=== PATIENT | female | born 1955 | race Two or more races ===

== ENCOUNTER 2020-07-10 12:00 | Inpatient (IN) | payer OTHER ==
[~2020-07-10] VITALS: Ht 162.6 cm; Wt 84.4 kg
[2020-07-10] MEDS ORDERED: METO PO (18:03)
[2020-07-10] MEDS ORDERED: LOSARTAN-HCTZ1 EAC1 PO (18:03)
[2020-07-10] MEDS ORDERED: LIPITO PO (18:04)
[2020-07-10] MEDS ORDERED: METFORMIN PO (18:05)
[2020-07-12] MEDS ORDERED: ATORVASTATIN CA10 MG (09:21)
[2020-07-12] MEDS ORDERED: METOPROLOL SUC100 MG (09:22)
[2020-07-12] MEDS ORDERED: METFORMIN HCL500 M4 (09:22)
== END 2020-07-15 12:05 | disposition home or self-care (01) | DRG 331 ==
LOC: O/R 07-12 05:58 → SURG 07-12 05:58 → SURH 07-12 05:58 → SURG 07-12 14:35
PROVIDERS: ADMIT Surgery; ATTEND Surgery
PROC: 07BC4ZX Excision of Pelvis Lymphatic, Percutaneous Endoscopic Approach, Diagnostic (ICD-10-PCS; 2020-07-12)
PROC: 4A12X4Z Monitoring of Cardiac Electrical Activity, External Approach (ICD-10-PCS; 2020-07-12)
PROC: 0DTF4ZZ Resection of Right Large Intestine, Percutaneous Endoscopic Approach (ICD-10-PCS; principal; 2020-07-12 13:30)
DX: D12.2 Benign neoplasm of ascending colon (principal); E11.9 Type 2 diabetes mellitus without complications; G47.33 Obstructive sleep apnea (adult) (pediatric); I11.9 Hypertensive heart disease without heart failure